=== PATIENT | male | born 1975 | race Caucasian/White ===

== ENCOUNTER 2021-06-12 20:43 | Emergency (ER) | payer MEDICAID ==
[~2021-06-12] VITALS: Ht 175.3 cm; Wt 68.0 kg
[2021-06-12 20:43] VITALS: BP 109/63
[2021-06-12] MEDS ORDERED: LORAZEPAM 1 MG TABLET PO ONE (23:00)
[2021-06-12] MEDS ORDERED: FLUOXETINE HCL 20 MG CAPSULE ONE (23:18)
[2021-06-12] MEDS ORDERED: FLUOXETINE HCL 20 MG CAPSULE PO SCH (23:30)
[2021-06-12] MEDS ORDERED: LORA-259 PO (23:30)
[2021-06-12] MEDS ORDERED: LORAZEPAM 1 MG TABLET ONE (23:35)
== END 2021-06-13 02:29 | disposition home or self-care (01) ==
LOC: ER 20:48
DX: F41.9 Anxiety disorder, unspecified (principal); F32.9 Major depressive disorder, single episode, unspecified; Z76.0 Encounter for issue of repeat prescription